=== PATIENT | female | born 1970 | race Caucasian/White ===

== ENCOUNTER 2016-08-01 19:16 | Emergency (ER) | payer OTHER ==
[~2016-08-01] VITALS: Ht 152.4 cm; Wt 90.5 kg
[~2016-08-01 19:16] MED LIST: ESZO1TAB8 PO; LEVO125T2 PO; MELO-253 PO; TRAM50TA2 PO
[2016-08-01 19:20] VITALS: BP 174/90; PULSE 62; RESP 16; O2SAT 99
--- NOTE | 2016-08-01 21:02 | ED.REPORT ---
HPI-Dental/Mouth Prob Date of Service Aug 01, 2016 ED Provider: Ari Echols DO A 46 year old female with a history of similar symptoms presents to the ED complaining of an infection in the left side of her palate. This is accompanied by left sided ear and facial pain. This began four to five days ago as a small tender area, and has worsened since. She denies trauma initially causing the symptoms. The pt denies family history of skull base-rated cancers. Nursing Notes Stated Complaint: MOUTH PAIN Chief Complaint: Dental Nursing Notes Reviewed: Yes Allergies: Coded Allergies: hydrocodone (Verified Allergy, Severe, Nausea,Vomiting, 08/01/16) OK with Percocet meperidine (Verified Allergy, Severe, Nausea,Vomiting, 08/01/16) morphine (Verified Allergy, Severe, 08/01/16) Scheduled Eszopiclone (Lunesta) 1 Mg Tablet 1 MG PO HS Levothyroxine (Synthroid) 125 Mcg Tablet 125 MCG PO DAILY Meloxicam (Meloxicam) 15 Mg Tablet 15 MG PO AM Scheduled PRN Tramadol (Tramadol) 50 Mg Tablet 50-100 MG PO PRN PRN PRN For Pain General Time Seen by MD: 21:02 Chief Complaint Mouth pain Hx Obtained From: Patient, Spouse Arrived By: Walk-in Onset Occurred: 5 days ago Symptom Duration: Since onset Recent Healthcare: No recent doctor visit, No recent hospitalization Similar Sx Previous: Yes Past Medical History Past Medical History Grave's disease 1998 Past Surgical History Reports: Cholecystectomy Smoking History Former Smoker (quit over 20 years ago) Social History Alcohol Use: "Social" Drug Use: Denies drug use Other Social History: Ambulatory Status Independent Review of Systems Review of Systems Note: left-sided facial pain Ears / Nose / Throat: Reports: Earache left, Mouth pain (left-sided) Respiratory: Denies: Non-productive cough, Shortness of breath GI: Denies: Abdominal pain, Diarrhea, Nausea, Vomiting Complete sys rev & neg: except as marked. Physical Exam Initial Vital Signs Vital Signs (First) Date Time Temp Pulse Resp B/P Pulse Ox O2 Delivery O2 Flow Rate FiO2 08/01/16 19:20 37.0 62 16 174/90 99 Room Air Initial VS: Reviewed ENT: Airway patent, Mucous membranes moist fluctuance over hard palate of left maxilla some erythema, palpable fluid collection Neck: Atraumatic, Supple, Full range of motion General/Constitutional: Awake, Alert Head / Eyes: Atraumatic, Normocephalic, PERRL, EOMI Respiratory / Chest: Atraumatic, Breath sounds NL, Breath sounds = bilat, No respiratory distress Cardiovascular: Heart rate NL, Regular rhythm, Heart sounds NL Neurologic: Oriented X3, No motor deficits, No sensory deficits Abdomen: Atraumatic, Soft, Non-tender Back: Atraumatic, Full range of motion Upper Extremity / MS: Atraumatic, Full range of motion Lower Extremity / Pelvis / MS: Atraumatic, Full range of motion Skin: Atraumatic, Color NL, No rash, Warm, Dry Psychiatric: Affect NL, Mood NL Interpretation & Diagnostics Lab Results Interpretation Result Diagram: 08/01/163 08/01/162252 Test 08/01/16 22:53 White Blood Count 8.0th/mm3 (3.8-10.1) Red Blood Count 4.33mil/mm3 (3.90-5.20) Hemoglobin 10.9g/dL (12.0-15.6) Hematocrit 35.6% (35.0-46.0) Mean Corpuscular Volume 82.2fL (81-100) Mean Corpuscular Hemoglobin 25.2pg (27.0-35.0) Mean Corpuscular Hemoglobin Concent 30.6% (32.0-37.0) Red Cell Distribution Width 15.9% (12.3-15.4) Platelet Count 303bil/L (150-400) Neutrophils (%) (Auto) 58.5% (40-74) Lymphocytes (%) (Auto) 28.0% (14-46) Monocytes (%) (Auto) 9.8% (4-12) Eosinophils (%) (Auto) 3.4% (0-5) Basophils (%) (Auto) 0.2% (0-3) Sodium Level 140mEq/L (134-144) Potassium Level 4.3mEq/L (3.5-5.2) Chloride Level 102mEq/L (97-108) Carbon Dioxide Level 22mmol/L (18-29) Blood Urea Nitrogen 18mg/dL (6-24) Creatinine 0.56mg/dL (0.57-1.00) Estimat Glomerular Filtration Rate 166mL/min (>59) Glucose Level 98mg/dL (60-99) Calcium Level 8.9mg/dL (8.5-10.1) Total Bilirubin 0.3mg/dL (0.0-1.2) Aspartate Amino Transf (AST/SGOT) 23U/L (0-50) Alanine Aminotransferase (ALT/SGPT) 18U/L (0-32) Alkaline Phosphatase 70U/L (25-150) Total Protein 7.2g/dL (6.4-8.4) Albumin 4.2g/dL (3.4-5.0) Hold Cobian Top Tube Received (Received) Pulse Oximetry Interpretation Pulse Oximetry Interpretation: 99% on room air Pulse Oximetry: Pulse Ox normal Pulse Oximetry Interpretation: 98% on room air Pulse Oximetry: Pulse Ox normal Procedures Incision & Drainage Abscess I & D Abscess: 4% topical lidocaine held over abscess with large Q-tip single incision 2 mm long and 2 mm deep release of purulent material and abscess flattened careful to avoid deep neurovascular structures of mouth Time: 00:53 Procedure Performed by: ED physician Consent / Setup / Site Prep: Informed consent provided, Consent from patient , Time-out performed, Hand hygiene observed, Stand sterile technique, Standard surgical scrub, Sterile drapes applied Location of Abscess: left maxilla Local Anesthesia: Other (topical 4% lidocaine) Incised Abscess with Scalpel: #11 Post-Procedure / Complications: Culture obtained, No complications, Condition improved, Tolerated procedure well, Patient stable Re-Eval/Medical Decision Source of Hx: Old records Re-Evaluation/Progress : Time of Eval: 00:47 Patient Status: Condition improved Re-Evaluation/Progress Note: Pt rechecked, who is comfortable. She is informed of her radiology results. Counseled Regarding: Diagnosis, Lab results, Need for follow-up, When/why to return to ED Discharge & Departure Primary Impression: Oral abscess Disposition: Home Discharge Condition All VS Reviewed: Yes Condition: Stable Patient Instructions: Dental Abscess (ED) Additional Instructions: Take Augmentin twice daily for 7 days. Take 1-2 Percocet as needed for severe pain. Do not drive, drink alcohol, or consume acetaminophen while taking the Percocet. Take Zofran every 8 hours as needed for nausea. Call the referral ENT surgeon's office (Dr. Scott) to arrange follow up this week. Return to the emergency department if you develop any new or worsening symptoms. Referrals: Delmy Gamez (PCP) Rickie Scott MD Scribe Attestation Portions of this note were transcribed by Jam Buckley. I, Dr. Echols personally performed the history, physical exam and medical decision-making; I reviewed and confirmed the accuracy of the information in the transcribed note. Signed by: Cachorro Swan, 08/02/2016 and 0054. copies to: Rickie Scott MD; Delmy Gamez Todd P DO Aug 01, 2016 21:02 JAM BUCKLEY Aug 01, 2016 22:46
[2016-08-01] MEDS ORDERED: Ampicillin-Sulbactam Inj 3,000 MG in 0.9% Sodium Chloride 100 ML IV ONE (22:40)
[2016-08-01] MEDS ORDERED: Dexamethasone Inj 20 MG in 0.9% Sodium Chloride-Pha MIX 50 ML IV ONE (22:40)
[2016-08-01] MEDS ORDERED: Ondansetron 2 mg/mL 2 mL Inj IVPUSH PRN (22:40)
[2016-08-01 23:08] LABS: BASOPHILS % (AUTO) 0.2 % (0-3); EOSINOPHILS % (AUTO) 3.4 % (0-5); MONOCYTES % (AUTO) 9.8 % (4-12); Mean Corpuscular Hemoglobin 25.2 pg (27.0-35.0); Mean Corpuscular Volume 82.2 fL (81-100); NEUTROPHILS % (AUTO) 58.5 % (40-74); Platelet Count 303 bil/L (150-400)
[2016-08-01] MEDS: fentaNYL-PF 50 mCg/mL 2 mL Inj IVPUSH PRN ×3 (23:10→23:55)
[2016-08-01 23:22] VITALS: BP 160/89; PULSE 63; RESP 16; O2SAT 98
[2016-08-02] MEDS: fentaNYL-PF 50 mCg/mL 2 mL Inj IVPUSH PRN ×2 (00:18→00:50)
[2016-08-02] MEDS ORDERED: Lidocaine 4% 4 mL Laryng-O-Jet Top Soln MUC_MEMBRM ONE (00:45)
[2016-08-02] MEDS ORDERED: Lidocaine 4% 50 mL Topical Solution TOPICAL ONE (00:47)
[2016-08-02] MEDS ORDERED: _oxyCODONE/APAP 5-325 mg Tablet PO PRN (01:00)
[2016-08-02] MEDS ORDERED: _Ondansetron ODT 4 mg Tablet PO PRN (01:00)
[2016-08-02 01:50] VITALS: BP 140/80; PULSE 60; RESP 16; O2SAT 98
--- NOTE | 2016-08-02 09:21 | DRSVH ---
PROCEDURE: CT FACE WITH CONTRAST ([id number]) INDICATIONS: hard palate abscess TECHNIQUE: After the administration of intravenous contrast, 3.0 mm axial sections acquired from the mid-neck to the frontal sinuses, with coronal reformatting. For radiation dose reduction, the following was use d: automated exposure control. COMPARISON: None. FINDINGS: Image quality: Excellent. Soft tissues: No edema, masses, or fluid collections. Prominent bilateral level I and level II neck lymph nodes are noted. Vascular: Visualized vascular structures appear patent throughout. Bony vascular foramina and canal s appear normal. Bones: Facial bones appear intact, without fractures, erosions, or destruction. Visualized portions of the skull base and auditory canals also appear normal. Sinuses: Mucosal thickening noted in the left maxillary sinus. Mastoid air cells are aerated. IMPRESSION: 1. No abscess identified. 2. Prominent bilateral level I and level II neck lymph nodes likely reactive. Dictated by: Gypsy Whelan MD, PhD on 08/02/2016 at 9:15 Approved by: Gypsy Whelan MD, PhD on 08/02/2016 at 9:20
== END 2016-08-02 01:50 | disposition home or self-care (01) ==
LOC: SED 19:16
DX: K12.2 Cellulitis and abscess of mouth (principal); Z87.891 Personal history of nicotine dependence; Z88.5 Allergy status to narcotic agent; Z88.8 Allergy status to other drugs, medicaments and biological substances
CPT/HCPCS: 36415; 41800; 70487; 80053; 85025; 96365; 96375; 99285; J0295; J1100; J2405; J3010; Q9967